=== PATIENT | female | born 2005 | race African-American/Black ===

== ENCOUNTER 2025-03-23 21:43 | Emergency (ER) | payer MEDICAID ==
[~2025-03-23] VITALS: Ht 149.9 cm; Wt 53.0 kg
[2025-03-23 21:46] VITALS: O2SAT 100
[2025-03-23] MEDS ORDERED: GUAI-450 MT (23:33)
[2025-03-23] MEDS ORDERED: IBUP-1455 MT (23:33)
[2025-03-23 23:41] VITALS: BP 124/87; PULSE 68; RESP 18; TEMP 36.8; O2SAT 100
== END 2025-03-23 23:50 | disposition home or self-care (01) ==
LOC: ER 21:43
DX: R09.1 Pleurisy (principal); R06.02 Shortness of breath
CPT/HCPCS: 71045; 93005; 99283